=== PATIENT | female | born 1975 | race African-American/Black ===

== ENCOUNTER 2022-08-06 15:44 | Emergency (ER) | payer MEDICAID, OTHER ==
[~2022-08-06] VITALS: Ht 160 cm; Wt 62.0 kg
[2022-08-06 16:29] VITALS: BP 140/91
[2022-08-06] MEDS ORDERED: IBUPROFEN 600MG TABLET PO ONE (18:45)
[2022-08-06] MEDS ORDERED: IBUP-2029 MT (18:55)
== END 2022-08-06 19:25 | disposition home or self-care (01) ==
LOC: ER 15:44
DX: S92.352A Displaced fracture of fifth metatarsal bone, left foot, initial encounter for closed fracture (principal); W50.2XXA Accidental twist by another person, initial encounter; Y93.89 Activity, other specified; Y92.89 Other specified places as the place of occurrence of the external cause; Y99.8 Other external cause status
CPT/HCPCS: 73590; 73610; 73630; 81025; 99284; Z7610